=== PATIENT | male | born 1985 | race Caucasian/White ===

== ENCOUNTER 2020-12-16 04:45 | Emergency (ER) | payer BC ==
--- NOTE | 2020-12-16 04:47 | EDM.PDOC ---
<Damion Gaston - Last Filed: 12/16/20 06:53> ED HPI GENERAL MEDICAL PROBLEM - General Stated Complaint: PAIN IN ABDOMIN Time Seen by Provider: 12/16/20 04:47 Source of Information: Reports: Patient History Limitations: Reports: No Limitations - History of Present Illness INITIAL COMMENTS - FREE TEXT/NARRATIVE: 35M presents for abdominal pain. Patient states that he woke up this morning with a stabbing sensation in midepigastrium, left upper quadrant abdomen, right upper quadrant abdomen. He felt hungry and ate hoping that this would make the pain better. Initially the pain was mildly improved but on his way to work this morning he had an overwhelming sensation to vomit. He was unable to vomit anything up but noted worsening pain. Pain is constant but waxing and waning in intensity. No associated back pain. No history of recent binge drinking. No history of pancreatitis. No abdominal surgical history. No hematuria or back pain. Last bowel movement yesterday normal. Notes that he had a similar episode about 3 weeks ago which lasted about 3 days and did not seek medical attention at that time. - Related Data Allergies Allergy/AdvReac Type Severity Reaction Status Date / Time No Known Allergies Allergy Verified 12/16/20 05:00 ED ROS GENERAL - Review of Systems Review Of Systems: Comprehensive ROS is negative, except as noted in HPI. ED EXAM, GENERAL - Physical Exam Exam: See Below Exam Limited By: No Limitations General Appearance: Alert, WD/WN, No Apparent Distress Ears: Hearing Grossly Normal Throat/Mouth: Normal Voice, No Airway Compromise Head: Atraumatic, Normocephalic Respiratory/Chest: No Respiratory Distress, Lungs Clear, Normal Breath Sounds, No Accessory Muscle Use Cardiovascular: Normal Peripheral Pulses, Regular Rate, Rhythm GI/Abdominal: Soft, Non-Tender Extremities: Normal Inspection Neurological: Alert, Normal Cognition, Normal Gait Psychiatric: Normal Affect, Normal Mood Skin Exam: Warm, Dry, Intact, Normal Color Course - Re-Assessments/Exams Free Text/Narrative Re-Assessment/Exam: 12/16/20 05:15 We will get labs. Will trial GI cocktail and Pepcid. Will defer CT imaging as patient has no abdominal tenderness to palpation and symptoms are not suggestive of cholecystitis or appendicitis. 12/16/20 05:49 Patient notes worsening of pain after GI cocktail and Pepcid. Morphine given. Considering patient symptoms are worsening will get CT abdomen pelvis to rule acute intra-abdominal pathology. 12/16/20 06:46 Questionable pericholecystic fluid on CT imaging; radiology recommends RUQ US. Will order and sign out to day-team ED physician to f/u Departure - Departure Disposition: Home, Self-Care 01 Clinical Impression: Cholelithiasis - Discharge Information Instructions: Cholelithiasis, [id number] Referrals: PCP,None [Primary Care Provider] - Forms: ED Department Discharge Additional Instructions: You were evaluated today on an emergent basis. At this time you do have a gallstone in your gallbladder which is likely causing your pain. In discussion with the surgeon today he recommended outpatient follow-up for possible outpatient surgery to remove your gallbladder. As discussed if you have any worsening pain, fever, vomiting I would like you to return to the emergency department. At this time he does recommend a low-fat diet. Please contact them tomorrow morning to schedule appointment for Thursday. State that you were in the ER and Dr. Delaney recommends follow up appointment on Thursday [facility] [place] - General Surgery [address], [address] [place] [address] The patient is informed of any results of their evaluation and diagnostic workup and all questions are answered. They are given discharge instructions and return precautions. The patient is stable for discharge. The patient states they understand and agree with the plan and that they will return if their symptoms get worse or if they have any new concerns. The following information is given to patients seen in the emergency department who are being discharged to home. This information is to outline your options for follow-up care. We provide all patients seen in our emergency department with a follow-up referral. The need for follow-up, as well as the timing and circumstances, are variable depending upon the specifics of your emergency department visit. If you don't have a primary care physician on staff, we will provide you with a referral. We always advise you to contact your personal physician following an emergency department visit to inform them of the circumstance of the visit and for follow-up with them and/or the need for any referrals to a consulting specialist. The emergency department will also refer you to a specialist when appropriate. This referral assures that you have the opportunity for follow-up care with a specialist. All of these measure are taken in an effort to provide you with optimal care, which includes your follow-up. Under all circumstances we always encourage you to contact your private physician who remains a resource for coordinating your care. When calling for follow-up care, please make the office aware that this follow-up is from your recent emergency room visit. If for any reason you are refused follow-up, please contact the [facility] Emergency Department at and asked to speak to the emergency department charge nurse. <Mika Freeman - Last Filed: 12/16/20 09:50> ED HPI GENERAL MEDICAL PROBLEM - History of Present Illness INITIAL COMMENTS - FREE TEXT/NARRATIVE: Patient was signed out to me by Dr. Gaston at 7 AM. I promptly performed a detailed physical examination and my examination was done after ED treatments were initiated by the signout provider. Patient has been under the care of previous provider up until this point. On reevaluation patient was sitting comfortably in bed with normal vital signs. The patient appeared comfortable in no acute distress. Stop the patient was pending right upper quadrant ultrasound. The radiological images were viewed by myself along with reading the report from the radiologist. Abdomen ultrasound reveals a 1.3 cm echogenic stone lodged in the gallbladder neck. An adjacent lobular partially mobile hyperechoic structure is present within the gallbladder measuring 1.2 cm. There is mild irregularity of the nonthickened gallbladder wall. No pericholecystic fluid. Findings are consistent with cholecystitis. Common bile duct measures 4 mm. After imaging I did provide the patient with 1 g of ceftriaxone, obtained Covid swab and recommended the patient not eat anything by mouth. I contacted Dr. Delaney who recommended that at this time given the patient does not have a fever, does not have a white count, the common bile duct measurement is not consistent with acute cholecystitis. He recommended outpatient follow-up and a low-fat diet. I discussed this with the patient. The patient was amenable to this plan. He was given strict return precautions. The patient was amenable to discharge and had no further questions. DISPOSITION: The patient was discharged home in stable condition. The patient will follow up with general surgery within 2 days CONDITION: Fair PROCEDURES: None FINAL IMPRESSION(S)/DIAGNOSES: 1. Acute symptomatic cholelithiasis Mika Freeman M.D. Course - Vital Signs Last Recorded V/S: Last Vital Signs Temp 36.7 C 12/16/20 09:22 Pulse 55 L 12/16/20 09:22 Resp 15 12/16/20 09:22 BP 112/76 12/16/20 09:22 Pulse Ox 100 12/16/20 09:22 - Orders/Labs/Meds Orders: Active Orders 24 hr Category Date Time Status Saline Lock Insert [OM.PC] Stat Oth 12/16/20 05:13 Ordered Labs: Laboratory Tests 12/16/20 12/16/20 12/16/20 Range/Units 05:10 05:10 08:31 WBC 6.48 (4.0-11.0) K/uL RBC 4.81 (4.50-5.90) M/uL Hgb 15.8 (13.0-17.0) g/dL Hct 43.1 (38.0-50.0) % MCV 89.6 (80.0-98.0) fL MCH 32.8 H (27.0-32.0) pg MCHC 36.7 (31.0-37.0) g/dL RDW Std Deviation 40.4 (28.0-62.0) fl RDW Coeff of Rich 12 (11.0-15.0) % Plt Count 231 (150-400) K/uL MPV 10.20 (7.40-12.00) fL Neut % (Auto) 41.9 L (48.0-80.0) % Lymph % (Auto) 40.3 H (16.0-40.0) % Rhea % (Auto) 11.3 (0.0-15.0) % Eos % (Auto) 5.9 (0.0-7.0) % Baso % (Auto) 0.6 (0.0-1.5) % Neut # (Auto) 2.7 (1.4-5.7) K/uL Lymph # (Auto) 2.6 H (0.6-2.4) K/uL Rhea # (Auto) 0.7 (0.0-0.8) K/uL Eos # (Auto) 0.4 (0.0-0.7) K/uL Baso # (Auto) 0.0 (0.0-0.1) K/uL Nucleated RBC % 0.0 /100WBC Nucleated RBCs # 0 K/uL Sodium 141 (136-148) mmol/L Potassium 3.9 (3.5-5.1) mmol/L Chloride 104 (98-107) mmol/L Carbon Dioxide 31.6 (21.0-32.0) mmol/L BUN 19 H (7.0-18.0) mg/dL Creatinine 1.0 (0.8-1.3) mg/dL Est Cr Clr Drug Dosing TNP Estimated GFR (MDRD) > 60.0 ml/min Glucose 110 H (74-106) mg/dL Calcium 8.5 (8.5-10.1) mg/dL Total Bilirubin 0.6 (0.2-1.0) mg/dL AST 16 (15-37) IU/L ALT 33 (14-63) IU/L Alkaline Phosphatase 77 (46-116) U/L Total Protein 7.5 (6.4-8.2) g/dL Albumin 4.1 (3.4-5.0) g/dL Globulin 3.4 (2.6-4.0) g/dL Albumin/Globulin Ratio 1.2 (0.9-1.6) Lipase 72 L (73-393) U/L SARS-CoV-2 RNA (THOMAS) NEGATIVE (NEGATIVE) Meds: Medications Discontinued Medications Generic Name Dose Route Start Last Admin Trade Name Freq PRN Reason Stop Dose Admin Ceftriaxone Sodium 1 gm 12/16/20 08:32 12/16/20 08:57 Ceftriaxone 1 Gm Vial IVPUSH 12/16/20 08:33 Not Given ONETIME ONE Al Hydroxide/Mg Hydroxide 15 0 ml 12/16/20 05:11 12/16/20 05:20 ml/ Lidocaine HCl 5 ml PO 12/16/20 05:12 15 each ONETIME ONE Administration Famotidine 20 mg 12/16/20 05:11 12/16/20 05:20 Famotidine 20 Mg/2 Ml Sdv IVPUSH 12/16/20 05:12 20 mg ONETIME ONE Administration Ceftriaxone Sodium/Dextrose 1 50 mls @ 100 mls/hr 12/16/20 08:37 12/16/20 08:48 gm/ Premix IV 12/16/20 09:06 100 mls/hr ONETIME ONE Administration Iopamidol 100 ml 12/16/20 06:05 12/16/20 06:05 Iopamidol 755 Mg/Ml 500 Ml Multipack Bottle IVPUSH 12/16/20 06:06 100 ml ONETIME ONE Administration Ketorolac Tromethamine 15 mg 12/16/20 06:52 12/16/20 07:08 Ketorolac 30 Mg/Ml Sdv IVPUSH 12/16/20 06:53 15 mg ONETIME ONE Administration Lidocaine HCl Confirm 12/16/20 05:17 12/16/20 05:21 Lidocaine 2% Viscous Solution 15 Ml Cup Administered 12/16/20 05:18 Not Given Dose 15 ml .ROUTE .STK-MED ONE Morphine Sulfate 4 mg 12/16/20 05:38 12/16/20 05:42 Morphine 4 Mg/Ml Vial IVPUSH 12/16/20 05:39 4 mg ONETIME ONE Administration Departure - Departure Time of Disposition: 08:52 Condition: Fair - Discharge Information *PRESCRIPTION DRUG MONITORING PROGRAM REVIEWED*: No *COPY OF PRESCRIPTION DRUG MONITORING REPORT IN PATIENT ISABELLA: No Sepsis Event Note (ED) - Focused Exam Vital Signs: Vital Signs Temp Pulse Resp BP Pulse Ox 12/16/20 09:22 36.7 C 55 L 15 112/76 100 12/16/20 08:57 50 L 134/75 100 12/16/20 08:10 49 L 129/83 99 12/16/20 07:10 48 L 15 121/82 99 12/16/20 06:30 49 L 17 114/79 99 12/16/20 05:46 54 L 18 141/89 H 98 12/16/20 05:01 36.2 C 50 L 17 142/95 H 100
[2020-12-16] MEDS ORDERED: Alum Hydrox/Mag Hydrox/Simeth 15 ML, Lidocaine 2% 5 ML PO ONE ×2 (05:11)
[2020-12-16] MEDS ORDERED: Famotidine 20 MG/2 ML SDV IVPUSH ONE (05:11)
[2020-12-16] MEDS ORDERED: Lidocaine 2% Viscous Solution 15 ML Cup ONE (05:17)
[2020-12-16] MEDS ORDERED: Aluminum Hydroxide/Magnesium Hydroxide/Simethicone XS Susp 30 ML Cup ONE (05:17)
[2020-12-16 05:36] LABS: BLOOD UREA NITROGEN,BUN 19 mg/dL (7.0-18.0); CARBON DIOXIDE,CO2 31.6 mmol/L (21.0-32.0); CHLORIDE,CL 104 mmol/L (98-107); GLUCOSE RANDOM 110 mg/dL (74-106); LIPASE 72 U/L (73-393); POTASSIUM,K 3.9 mmol/L (3.5-5.1); SODIUM,NA 141 mmol/L (136-148)
[2020-12-16] MEDS ORDERED: Morphine 4 MG/ML VIAL IVPUSH ONE (05:38)
[2020-12-16] MEDS ORDERED: Iopamidol 755 MG/ML 500 ML Multipack Bottle IVPUSH ONE (06:05)
--- NOTE | 2020-12-16 06:45 | CT ---
INDICATION: Upper abdominal pain TECHNIQUE: CT abdomen and pelvis acquired with 100 cc Isovue 370 IV contrast. COMPARISON: None FINDINGS: Lower chest: Unremarkable. Liver: Unremarkable. Spleen: Unremarkable. Pancreas: Unremarkable. Gallbladder and bile ducts: Questionable trace amount of pericholecystic fluid. Adrenal glands: Unremarkable. Kidneys: Unremarkable. GI tract: Unremarkable. Appendix is normal. Vascular structures: Unremarkable. Lymph nodes: Unremarkable. Miscellaneous: Unremarkable. No free air or significant free fluid. Pelvic Organs: Unremarkable. Bones: Unremarkable for age. IMPRESSION: Questionable trace amount of pericholecystic fluid. Consider right upper quadrant ultrasound for further evaluation. Please note that all CT scans at this facility use dose modulation, iterative reconstruction, and/or weight-based dosing when appropriate to reduce radiation dose to as low as reasonably achievable. Dictated by Denisse Avina MD @ 12/16/2020 6:43:27 AM (Electronically Signed)
[2020-12-16] MEDS ORDERED: Ketorolac 30 MG/ML SDV IVPUSH ONE (06:52)
--- NOTE | 2020-12-16 08:24 | US ---
INDICATION: Upper abdominal pain COMPARISON: CT 12/16/2020 TECHNIQUE: Real time reina scale imaging and color Doppler analysis was performed of the right upper quadrant. FINDINGS: The pancreas is not well visualized but appeared normal on the CT scan. No intrahepatic mass. No ascites. The gallbladder wall is somewhat irregular corresponding to the CT. The thickness is less than 3 millimeters. There is an echogenic stone lodged in the gallbladder neck measuring 1.3 cm. Partially mobile lobular hyperechoic stone also present within the gallbladder lumen measuring 1.2 cm. Common bile duct measures 4 millimeters. The right kidney is normal without hydronephrosis. The right kidney measures 10.3 cm. IMPRESSION: 1.3 cm echogenic stone lodged in the gallbladder neck. An adjacent lobular partially mobile hyperechoic structure is present within the gallbladder lumen measuring 1.2 cm. Mild irregularity of the non thickened gallbladder wall. No pericholecystic fluid. Findings are concerning for cholecystitis. Dictated by Nick Salcedo MD @ 12/16/2020 8:23:51 AM (Electronically Signed)
[2020-12-16] MEDS ORDERED: cefTRIAXone 1 GM Vial IVPUSH ONE (08:32)
[2020-12-16] MEDS ORDERED: cefTRIAXone 1 GM in Premix Bag 1 BAG IV ONE (08:37)
== END 2020-12-16 09:22 | disposition home or self-care (01) ==
LOC: MW.ED 04:45
DX: K80.20 Calculus of gallbladder without cholecystitis without obstruction (principal); Z20.822 Contact with and (suspected) exposure to COVID-19
CPT/HCPCS: 36415; 74177; 76705; 80053; 83690; 85025; 87635; 96365; 96375; 99284; A9270; J0696; J1885; J2270; J3490; Q9967; U0002

== ENCOUNTER 2020-12-31 08:14 | Day surgery (SDC) | payer BC ==
[~2020-12-31 08:14] MED LIST: Albuterol 0.083% 2.5 MG/3 ML Neb Soln NEB PRN; HYDROmorphone 1 MG/ML Syringe IVPUSH PRN; Lactated Ringers 1,000 ML IV SCH; Metoclopramide 10 MG/2 ML SDV IVPUSH PRN; Morphine 2 MG/ML SYRINGE IVPUSH PRN; Naloxone 0.4 MG/ML SDV IVPUSH PRN; Ondansetron 4 MG/2 ML SDV IVPUSH PRN; cefOXitin 2 GM in Premix Bag 1 BAG IV ONE; fentaNYL 100 MCG/2 ML SDV IVPUSH PRN
[2020-12-31] MEDS ORDERED: propofoL 100 ML ONE (08:41)
[2020-12-31] MEDS ORDERED: Dexmedetomidine 200 MCG/2 ML SDV ONE (08:42)
[2020-12-31] MEDS ORDERED: Rocuronium Bromide 50 MG/5 ML Syringe ONE ×2 (08:42)
[2020-12-31] MEDS ORDERED: Sugammadex Sodium 200 MG/2 ML VIAL ONE (08:42)
[2020-12-31] MEDS ORDERED: Lidocaine 2% 100 MG/5 ML Syringe ONE (08:42)
[2020-12-31] MEDS ORDERED: Water For Injection, Sterile 20 ML ONE (08:42)
[2020-12-31] MEDS ORDERED: Lidocaine 2% 5 ML SDV ONE (08:42)
[2020-12-31] MEDS ORDERED: Ondansetron 4 MG/2 ML SDV ONE ×2 (08:42)
[2020-12-31] MEDS ORDERED: fentaNYL 100 MCG/2 ML SDV ONE ×2 (08:43→11:05)
[2020-12-31] MEDS ORDERED: ceFAZolin 1 GM Vial ONE (09:22)
[2020-12-31] MEDS ORDERED: Bupivacaine 0.5% 30 ML SDV ONE (09:22)
--- NOTE | 2020-12-31 09:30 | PCM.PREANE ---
Preanesthetic Assessment - Anesthesia/Transfusion/Family Hx Anesthesia History: Prior Anesthesia Without Reaction Transfusion History: Prior Transfusion Reaction - Review of Systems General: No Symptoms Pulmonary: No Symptoms Cardiovascular: No Symptoms Gastrointestinal: Abdominal Pain Neurological: No Symptoms Other: Reports: None - Physical Assessment NPO Status Date: 12/30/20 NPO Status Time: 21:00 Vital Signs: Last Vital Signs Temp 36.4 C 12/31/20 08:40 Pulse 59 L 12/31/20 08:40 Resp 14 12/31/20 08:40 BP 123/80 12/31/20 08:40 Pulse Ox 97 12/31/20 08:40 Height: 5 ft 11 in Weight: 82.554 kg ASA Class: 1 Mental Status: Alert & Oriented x3 Airway Class: Mallampati = 2 Dentition: Reports: Normal Dentition Thyro-Mental Finger Breadths: 3 Mouth Opening Finger Breadths: 3 ROM/Head Extension: Full Lungs: Clear to Auscultation, Normal Respiratory Effort Cardiovascular: Regular Rate, Regular Rhythm - Allergies Allergies/Adverse Reactions: Allergies Allergy/AdvReac Type Severity Reaction Status Date / Time No Known Allergies Allergy Verified 12/26/20 10:01 - Acknowledgements Anesthesia Type Planned: General Anesthesia Pt an Appropriate Candidate for the Planned Anesthesia: Yes Alternatives and Risks of Anesthesia Discussed w Pt/Guardian: Yes Pt/Guardian Understands and Agrees with Anesthesia Plan: Yes PreAnesthesia Questionnaire HEENT History: Reports: Other (See Below) Other HEENT History: has lower permanent dental retainer Cardiovascular History: Reports: None Respiratory History: Reports: None Gastrointestinal History: Reports: Other (See Below) Other Gastrointestinal History: occasional heartburn, fatty food intolerance, right upper quadrant pain Genitourinary History: Reports: None Musculoskeletal History: Reports: None Neurological History: Reports: None Psychiatric History: Reports: None Endocrine/Metabolic History: Reports: None Hematologic History: Reports: None Immunologic History: Reports: None Oncologic (Cancer) History: Reports: None Dermatologic History: Reports: None - Infectious Disease History Infectious Disease History: Reports: None - Past Surgical History Head Surgeries/Procedures: Reports: None HEENT Surgical History: Reports: None GI Surgical History: Reports: Other (See Below) Other GI Surgeries/Procedures: repair of anal fistula - SUBSTANCE USE Tobacco Use Status *Q: Never Tobacco User Recreational Drug Use History: No - HOME MEDS Home Medications: Home Meds . [No Known Home Meds] 12/26/20 [History] - CURRENT (IN HOUSE) MEDS Current Meds: Current Medications Albuterol (Albuterol 0.083% 2.5 Mg/3 Ml Neb Soln) 2.5 mg NEB ONETIME PRN PRN Reason: Wheezing Droperidol (Droperidol 5 Mg/2 Ml Sdv) 0.625 mg IVPUSH ONETIME PRN PRN Reason: Nausea/Vomiting Fentanyl (Fentanyl 100 Mcg/2 Ml Sdv) 50 mcg IVPUSH Q5M PRN PRN Reason: Pain (mild 1-3) Hydromorphone HCl (Hydromorphone 1 Mg/Ml Syringe) 1 mg IVPUSH Q10M PRN PRN Reason: Pain (moderate 4-6) Lactated Ringer's (Ringers, Lactated) 1,000 mls @ 125 mls/hr IV ASDIRECTED WILBUR Last Admin: 12/31/20 08:50 Dose: 125 mls/hr Documented by: Metoclopramide HCl (Metoclopramide 10 Mg/2 Ml Sdv) 10 mg IVPUSH ONETIME PRN PRN Reason: Nausea/Vomiting Morphine Sulfate (Morphine 2 Mg/Ml Syringe) 2 mg IVPUSH Q10M PRN PRN Reason: Pain (severe 7-10) Naloxone HCl (Naloxone 0.4 Mg/Ml Sdv) 0.1 mg IVPUSH ASDIRECTED PRN PRN Reason: Respiratory Depression Ondansetron HCl (Ondansetron 4 Mg/2 Ml Sdv) 4 mg IVPUSH ONETIME PRN PRN Reason: Nausea/Vomiting Discontinued Medications Bupivacaine HCl (Bupivacaine 0.5% 30 Ml Sdv) Confirm Administered Dose 30 ml .ROUTE .STK-MED ONE Stop: 12/31/20 09:23 Cefazolin Sodium (Cefazolin 1 Gm Vial) Confirm Administered Dose 1 gm .ROUTE .STK-MED ONE Stop: 12/31/20 09:23 Dexmedetomidine HCl (Dexmedetomidine 200 Mcg/2 Ml Sdv) Confirm Administered Dose 200 mcg .ROUTE .STK-MED ONE Stop: 12/31/20 08:43 Fentanyl (Fentanyl 100 Mcg/2 Ml Sdv) Confirm Administered Dose 100 mcg .ROUTE .STK-MED ONE Stop: 12/31/20 08:44 Cefoxitin Sodium 2 gm/ Premix 50 mls @ 100 mls/hr IV ONETIME ONE Stop: 12/31/20 06:29 Propofol (Diprivan 100 Ml) Confirm Administered Dose 100 mls @ as directed .ROUTE .ST-MED ONE Stop: 12/31/20 08:42 Sterile Water (Sterile Water For Injection) Confirm Administered Dose 20 mls @ as directed .ROUTE .[facility]-MED ONE Stop: 12/31/20 08:43 Acetaminophen (Ofirmev 1000 Mg/100 Ml) Confirm Administered Dose 100 mls @ as directed .ROUTE .ST-MED ONE Stop: 12/31/20 08:44 Lidocaine (Lidocaine 2% 5 Ml Sdv) Confirm Administered Dose 5 ml .ROUTE .[facility]-MED ONE Stop: 12/31/20 08:43 Lidocaine HCl (Lidocaine 2% 100 Mg/5 Ml Syringe) Confirm Administered Dose 100 mg .ROUTE .ST-MED ONE Stop: 12/31/20 08:43 Ondansetron HCl (Ondansetron 4 Mg/2 Ml Sdv) Confirm Administered Dose 4 mg .ROUTE .ST-MED ONE Stop: 12/31/20 08:43 Ondansetron HCl (Ondansetron 4 Mg/2 Ml Sdv) Confirm Administered Dose 4 mg .ROUTE .[facility]-MED ONE Stop: 12/31/20 08:43 Rocuronium [place] (Rocuronium [place] 50 Mg/5 Ml Syringe) Confirm Administered Dose 50 mg .ROUTE .ST-MED ONE Stop: 12/31/20 08:43 Rocuronium [place] (Rocuronium [place] 50 Mg/5 Ml Syringe) Confirm Administered Dose 50 mg .ROUTE .ST-MED ONE Stop: 12/31/20 08:43 Sugammadex Sodium (Sugammadex Sodium 200 Mg/2 Ml Vial) Confirm Administered Dose 200 mg .ROUTE .ST-MED ONE Stop: 12/31/20 08:43
[2020-12-31] MEDS ORDERED: Midazolam 1 MG/ML 2 ML SDV ONE (09:41)
[2020-12-31] MEDS ORDERED: Ketorolac 30 MG/ML SDV ONE (10:31)
[2020-12-31] MEDS ORDERED: ePHEDrine 50 MG/ML SDV ONE (10:47)
--- NOTE | 2020-12-31 11:27 | PCM.POSTAN ---
POST ANESTHESIA ASSESSMENT - MENTAL STATUS Mental Status: Alert, Oriented - VITAL SIGNS Vital Signs: Last Vital Signs Temp 97.5 F 12/31/20 08:40 Pulse 59 L 12/31/20 08:40 Resp 14 12/31/20 08:40 BP 123/80 12/31/20 08:40 Pulse Ox 97 12/31/20 08:40 - RESPIRATORY Respiratory Status: Respiratory Rate WNL, Airway Patent, O2 Saturation Stable - CARDIOVASCULAR CV Status: Pulse Rate WNL, Blood Pressure Stable - GASTROINTESTINAL GI Status: No Symptoms - POST OP HYDRATION Hydration Status: Adequate & Stable
--- NOTE | 2020-12-31 11:27 | PCM48HPAN ---
Post Anesthesia Note - EVALUATION WITHIN 48HRS OF ANESTHETIC Vital Signs in Normal Range: Yes Patient Participated in Evaluation: Yes Respiratory Function Stable: Yes Airway Patent: Yes Cardiovascular Function Stable: Yes Hydration Status Stable: Yes Pain Control Satisfactory: Yes Nausea and Vomiting Control Satisfactory: Yes Mental Status Recovered: Yes Vital Signs: Last Vital Signs Temp 97.5 F 12/31/20 08:40 Pulse 59 L 12/31/20 08:40 Resp 14 12/31/20 08:40 BP 123/80 12/31/20 08:40 Pulse Ox 97 12/31/20 08:40
[2020-12-31] MEDS ORDERED: Lactated Ringers 1,000 ML IV SCH (11:30)
[2020-12-31] MEDS ORDERED: Acetaminophen/HYDROcodone 325-5 MG Tab PO PRN (11:30)
[2020-12-31] MEDS ORDERED: Morphine 4 MG/ML VIAL IVPUSH PRN (11:30)
--- NOTE | 2020-12-31 11:37 | PCM.OPNOTE ---
- General Post-Op/Procedure Note Date of Surgery/Procedure: 12/31/20 Operative Procedure(s): Laparoscopic cholecystectomy Pre Op Diagnosis: Symptomatic cholelithiasis Post-Op Diagnosis: Cholelithiasis with chronic cholecystitis Anesthesia Technique: General ET Tube (ASA I) Primary Surgeon: Elder Delaney Fluid Replacement, Intraop: 1,200 Output, Urine Amount: 75 EBL in mLs: 10 Condition: Good Free Text/Narrative:: Intake & Output 12/30/20 12/31/20 12/31/20 19:59 03:59 11:59 Output Total 75 Balance -75 DICTATION [id number] CPT CODE 59171
--- NOTE | 2020-12-31 12:24 | OR ---
SURGEON: Elder Delaney M.D. DATE OF PROCEDURE: 12/31/2020 OPERATION PERFORMED: Laparoscopic cholecystectomy. PRIMARY SURGEON: Elder Delaney M.D. ANESTHESIA: General endotracheal. ASA CLASSIFICATION: I. PREOPERATIVE DIAGNOSIS: Symptomatic cholelithiasis. POSTOPERATIVE DIAGNOSIS: Symptomatic cholelithiasis. ESTIMATED BLOOD LOSS: 20 mL. INTRAOPERATIVE FLUID REPLACEMENT: 1200 mL of crystalloid. INTRAOPERATIVE URINARY OUTPUT: 75 mL. DESCRIPTION OF PROCEDURE: The patient was taken to the operating room and placed on the operating table in the supine position. Thigh-high TEDs and sequential compression boots were placed. Time-out was called for appropriate identification of the patient and procedure. Following satisfactory attainment of general endotracheal anesthesia, a Barnett catheter was placed in the patient's urinary bladder. The abdomen was then prepped with DuraPrep solution and sterile drapes were applied. The skin just below the umbilicus was infiltrated with 0.5% Marcaine solution. Skin incision was made and deepened through the subcutaneous tissue obtaining hemostasis with the use of electrocautery. The Veress needle was introduced into the peritoneal cavity. Saline drop test was positive. Carbon dioxide pneumoperitoneum was established with the release set at 13 cm of water. Once a satisfactory pneumoperitoneum was established, 5 mm camera and port were placed. Under local anesthesia, 12 mm subxiphoid, 5 mm midclavicular, and 5 mm anterior axillary ports were placed. This was all done under direct vision. The gallbladder was then grasped, and adhesions were taken down. The patient did have [id number] adhesions. The infundibulum was identified, and the cholecystohepatic triangle dissected free obtaining a good critical view of all structures. The cystic duct was then hemoclipped proximally and distally and divided with laparoscopic Metzenbaum scissors. Dissection was carried up along the gallbladder until the cystic artery was identified, mobilized, and also hemoclipped proximally and distally before division. The gallbladder was then amputated from its bed using electrocautery. We did spill a couple of stones, and care was taken to retrieve these. Dissection was carried up along the gallbladder. There were some dense adhesions between the gallbladder and liver at the top of the gallbladder, and we did again get into the gallbladder and spill some bile. One larger stone was also spilled, and this was identified and captured and placed in an EndoCatch bag that was maintained in situ until the end of the procedure. Once the gallbladder was amputated, it was properly placed in an EndoCatch bag. The bed of the gallbladder was then inspected for hemostasis, and small bleeding sites were electrocoagulated. No bile leak was identified. The right upper quadrant was then irrigated with sterile saline solution and careful inspection carried out to make sure that we did not miss any stones. Once we were confident of that, the right hemidiaphragm was irrigated with 250 mL of saline with 20 mL of 0.5% Marcaine solution. That was left in place. Surgicel was placed into the bed of the gallbladder. The 12 mm subxiphoid port was removed and individually both EndoCatch bags were removed without difficulty. Under camera vision, the midclavicular and anterior axillary ports were removed, and finally, the infraumbilical camera and port were removed. All wounds were inspected for hemostasis, and no bleeding was noted. The subxiphoid and infraumbilical incisions were closed in 2 layers approximating the subcutaneous tissue with 3-0 Vicryl and the skin with subcuticular 4-0 Monocryl. The anterior axillary and midclavicular incisions were closed with subcuticular 4-0 Monocryl. All incisions were Steri-Stripped and dressed with sterile Tegaderm pads. Prior to emergence from anesthesia, the Barnett catheter was removed. Following emergence from anesthesia and extubation, the patient was taken to recovery room in satisfactory condition. BEATRIZ PANCHAL /[id number]
== END 2020-12-31 13:50 | disposition home or self-care (01) ==
LOC: MW.SDS 08:14
PROVIDERS: ATTEND Surgery
DX: K80.10 Calculus of gallbladder with chronic cholecystitis without obstruction (principal); K82.8 Other specified diseases of gallbladder; K90.49 Malabsorption due to intolerance, not elsewhere classified
CPT/HCPCS: 47562; J0131; J1885; J2250; J2405; J2704; J3010; J3490; J7030; J7120; J0690